=== PATIENT | male | born 1950 ===

== ENCOUNTER → 2022-09-22 14:57 | Outpatient (BNVA) | payer MEDICARE, OTHER, SELFPAY | PROVIDERS: PCP Family Medicine; Visit Provider Urology | DX: C61 Malignant neoplasm of prostate (principal); R39.15 Urgency of urination | CPT/HCPCS: 99202 ==

== ENCOUNTER → 2022-10-24 10:01 | Outpatient (BNVA) | payer MEDICARE, OTHER, SELFPAY | PROVIDERS: PCP Family Medicine; Visit Provider Urology | DX: C61 Malignant neoplasm of prostate (principal); R39.15 Urgency of urination | CPT/HCPCS: 52000; 99212 ==

== ENCOUNTER 2022-12-11 07:56 | Day surgery (SDC) | payer MEDICARE, OTHER, SELFPAY ==
--- NOTE | 2022-12-08 11:13 | HO.ANESPROP2 ---
Documented by User: Clarita Perez NP 12/08/22 11:13 HPI - Anesthesia Eval Consult details Narrative: 72yo M for Laser Ablation Prostate w/Green Light PMFSH Active Problems Active Problems: All Active Problems (Updated 09/22/22 @ 17:17 by Maurice Mcnair MD) Urinary urgency (Acute) Prostate cancer (Acute) Past Medical History Medical History Frequent urination Lyme disease Prostate cancer Social History Social History Patient Tobacco Use Status: Never used Tobacco Use of substances other than those prescribed or required for medical reasons: No Advance Directives: No Advance Directives Information Provided: Yes Meds Allergies Allergy/AdvReac Type Severity Reaction Status Date / Time No Known Allergies Allergy Verified 12/11/22 08:16 Home Medications Medication Instructions Recorded Confirmed Last Taken Type tamsulosin 0.4 mg capsule 0.8 mg PO DAILY 10/23/22 Unknown History Exam Exam Date and Time: December 08, 2022 1113 Assessment and Plan Assessment Anesthesia Assessment: Chart Reviewed Documented by User: Adriana Sargent MD 12/11/22 10:56 PMFSH Past Medical History Medical History Frequent urination Lyme disease Prostate cancer Family History Family history of problems with anesthesia: No Surgical History History of Problems with Anesthesia: No Social History Social History Patient Tobacco Use Status: Never used Tobacco Use of substances other than those prescribed or required for medical reasons: No Advance Directives: No Advance Directives Information Provided: Yes Meds Allergies Allergy/AdvReac Type Severity Reaction Status Date / Time No Known Allergies Allergy Verified 12/11/22 08:16 Home Medications Medication Instructions Recorded Confirmed Last Taken Type tamsulosin 0.4 mg capsule 0.8 mg PO DAILY 10/23/22 Unknown History Exam Airway Mallampati Class: II TM Dist: >3cm Neck ROM: Full Heart: rrr Lungs: cta Assessment and Plan Assessment Anesthesia Assessment: Anesthesia Plan Discussed Final Anesthetic Review Family History of Problems with Anesthesia: No History of Problems with Anesthesia: No NPO: Yes ASA Class: III Final Preanesthetic Review: No Changes in Pt Med Stat, Meds/Allgs Chart Reviewed, Consent Obtained/Reviewed and Anes Risks/Benef Reviewed Patient Risk: Intermediate Procedure Risk: Intermediate Anesthetic Plan Anesthetic Plan: GA Disposition: Standard PACU
[2022-12-11 08:19] VITALS: BMI 22.8
--- NOTE | 2022-12-11 11:36 | MHC.SHP ---
Pre-Procedural Eval Section A Date of Service: 12/11/22 The patient is an INPATIENT: No Changes since office visit: No Cold of Flu in the past 2 weeks, No New Medical Problems, No Changes in Medication and No Patient answered all questions The History & Physical has been completed within 30 days and I have reviewed it.: Yes Section B Chief Complaint: Benign prostatic hyperplasia with lower urinary tr Details of Present Illness: recurrent BPH with bladder neck obstruction Allergies: Allergies Allergy/AdvReac Type Severity Reaction Status Date / Time No Known Allergies Allergy Verified 12/11/22 08:16 Review of Systems Sugical H&P ROS: Negative: Constitution, Cardiovascular, Respiratory, Neurological, Psychiatric, Hem-Onc, Allergic/Immunologic, Gastrointestinal, Genitourinary, Musculoskeletal, Integumentary, Endocrine and Eyes/Ears/Nose/Throat Plan Diagnosis/Plan: Unchanged I have reviewed the history and physical and performed a pertinent physical examination on my patient. No changes have occurred unless specified. Time Spent With Patient Time: Total time managing care of this patient today ____ minutes.
--- NOTE | 2022-12-11 11:38 | W.PM.OPN ---
Operative Note Operative Note Date of Service: 12/11/22 Narrative: PreOperative Diagnosis: Neck contraction with BPH Post Operative Diagnosis: bladder neck contracture with BPH Procedure: GreenLight Laser bladder neck incision with prostate ablation Surgeon: Dr Maurice Mcnair Anesthesia: General Indications for procedure: underwent HiFU in [place] number of years ago for of prostate cancer treatment. Presents with persistent pyuria and weakness of stream. On cystoscopy has bladder neck contracture with median lobe of prostate. Recommend laser incision of the bladder neck with removal of medial aspect of the prostate. History of bladder outlet obstruction. Treated with alpha-alejandro and other medications. Still with symptoms Recommendation for prostate procedure with laser enucleation of prostate. Risks and benefits have been discussed. Focus was placed on development of retrograde ejaculation which is a normal part of this procedure. Procedure: After informed consent was verified the patient was brought to the operating room and placed in a supine position. Anesthesia was administered per protocol. Patient was placed in modified dorsal lithotomy position and prepped and draped in a sterile fashion. Safety pause time-out was confirmed. Antibiotics have been given. A Twenty-four [place] laser cystoscope was inserted per urethra. No abnormalities were found of the anterior and bulbar urethra. The prostate itself had evidence of prior HIFU treatment. The median lobe area down to the veru had been ablated. The bladder neck was contracted and there was a median lobe at that area. The bladder was examined and both ureteric orifices were seen in their normal positions away from the area of interest. The bladder itself had evidence of chronic inflammation with debris that would be consistent with pyuria. Using a GreenLight laser with settings of 80 w incisions were made at the 9 and 3 o'clock position. These were extended laterally in order to release the bladder neck contraction. In doing so the median lobe tissue at the trigone was released. The median lobe was then ablated and enucleated Creating an open channel. The lateral lobes were left intact to preserve continence. At the apex of the prostate there also looked to be beginnings of stricture forming secondary to devascularization. Great care was taken across this area as this is the location of the urinary sphincter. Both ureteric orifices were reviewed again in shown to be patent in away from any areas of energy damage. A 22 [place] 30 cc balloon Sparks catheter was placed over a stylet into the bladder. Clear efflux was obtained upopn irrigation with a Sonia piston syringe. 30 cc was placed in the balloon and gentle traction was placed. A snap was used to hold tension on the catheter to control bleeding during patient moved and transported. A drainage bag was placed. Once transportation is complete to the PACU the snap will be removed. The patient tolerated the procedure well, he was extubated in the operating and transferred in a stable condition to the recovery area. Total Power 26 kW Lasing time 5:30 Pathology: Prostate tissue Drains: Sparks catheter
[2022-12-11 11:45] VITALS: BP 142/73; PULSE 84; RESP 17; TEMP 36.1; O2SAT 96
[2022-12-11 11:50] VITALS: BP 125/75; PULSE 83; RESP 18; O2SAT 97
[2022-12-11 11:55] VITALS: BP 119/71; PULSE 79; RESP 18; O2SAT 97
[2022-12-11 12:00] VITALS: BP 126/72; PULSE 79; RESP 20; O2SAT 98
[2022-12-11 12:15] VITALS: BP 126/73; PULSE 74; RESP 20; TEMP 36.3; O2SAT 99
== END 2022-12-11 12:43 | disposition home or self-care (01) ==
PROVIDERS: PCP Family Medicine; Visit Provider Urology
PROC: (CPT 52648; principal; 2022-12-11 09:50)
DX: N40.1 Benign prostatic hyperplasia with lower urinary tract symptoms (principal); N13.8 Other obstructive and reflux uropathy; R39.12 Poor urinary stream; R82.81 Pyuria; Z85.46 Personal history of malignant neoplasm of prostate; Z88.1 Allergy status to other antibiotic agents; Z79.899 Other long term (current) drug therapy; Z86.19 Personal history of other infectious and parasitic diseases
CPT/HCPCS: 52648; J1100; J1956; J2405; J3010

== ENCOUNTER → 2022-12-14 09:24 | Outpatient (BNVA) | payer MEDICARE, OTHER, SELFPAY | PROVIDERS: PCP Family Medicine; Visit Provider Urology | DX: C61 Malignant neoplasm of prostate (principal) | CPT/HCPCS: 51700; 51798 ==

== ENCOUNTER → 2023-01-25 09:55 | Outpatient (BNVA) | payer OTHER, SELFPAY | PROVIDERS: PCP Family Medicine; Visit Provider Urology | DX: C61 Malignant neoplasm of prostate (principal); N32.0 Bladder-neck obstruction | CPT/HCPCS: 51798 ==

== ENCOUNTER 2023-07-27 10:26 | Outpatient (AMB) | payer MEDICARE, OTHER, SELFPAY ==
--- NOTE | 2023-07-27 10:39 | MHC.OFFVIS ---
Intake Intake Visit Reasons: 6m/PSA(Hall) Intake Note: Patient is Present for Follow Up Urology Medication: Finasteride, Tamsulosin Antibiotic Allergies: None Blood Thinners: None Pharmacy: [facility] Allergies No Known Allergies Allergy (Verified 07/27/23 10:43) Medication List - Last Reconciled 07/27/23 by Maurice Mcnair MD finasteride 5 mg PO DAILY 90 days tamsulosin 0.8 mg PO DAILY HPI HPI Comments History of Present Illness Details Adria is a pleasant male. He is a patient of . He is seen for the following urologic conditions - prostate cancer - urinary urgency and frequency with incontinence Prostate cancer and bladder outlet follow-up PSA well controlled 04/15 0.5 Has urinary urgency Is able to sleep through most of the night States 30 minutes during the day Can retry oxybutynin Prostate cancer Rising PSA Diagnosis 2006 Initial therapy HiFU in [place] PSA below 1 until recently PSA- 05/15 2.5, 04/15 0.5 Imaging - 09/14 volume 10 cc, PI-RADS 3 - 1 cm lesion, no evidence of KELLY Urinary urgency and frequency incontinence Progressive in past few years [facility] been [facility] Trial of multiple medications Cystoscopy - 10/16 median lobe prominent PFSH Medical History Frequent urination Prostate cancer Lyme disease Social History Patient Tobacco Use Status: Never used Tobacco Review of Systems Const Denies chills and Denies fever(s) Card Reports no additional complaints and Denies syncope Resp Denies cough GI Denies abdominal pain and Denies heartburn Reports as per HPI and Denies change in libido Neuro Denies syncope Psych Denies change in libido Endo Denies change in libido Physical Exam Const General: cooperative, healthy appearing, comfortable and no acute distress Orientation/consciousness: patient oriented x3 HEENT Face and sinus: Yes normal facial exam Mouth: moist mucous membranes Neck Neck: Yes normal visual inspection, Yes full ROM and Yes trachea midline Chest Chest palpation & inspection: normal inspection of the chest Resp Effort & Inspection: normal respiratory effort, able to speak in complete sentences and no respiratory distress GI Inspection: Yes normal to inspection Back/Spine/Pelvis Cervical Spine: normal cervical lordosis Thoracic/Lumbar Spine: thoracic and lumbar spine normal to inspection Skin General skin exam: no rashes or lesions noted Neuro General: patient oriented x3, gait normal, tone normal and moves all extremities Extrem General: Yes normal to inspection and Yes capillary refill normal Assessment & Plan Assessment & Plan (1) Prostate cancer: Comment: 2006 HiFu therapy [place] Code(s): C61 - Malignant neoplasm of prostate (2) Urinary urgency: Code(s): R39.15 - Urgency of urination (3) Bladder outlet obstruction: Code(s): N32.0 - Bladder-neck obstruction Plan Start anticholinergic Two month follow-up Orders: Orders Prostate Specific Antigen Today C61 - Malignant neoplasm of prostate, E11.69 - Type 2 diabetes mellitus with other specified complication, N52.1 - Erectile dysfunction due to diseases classified elsewhere Medications: New oxybutynin chloride ER 10 mg PO DAILY 30 tabs 1RF 30 days N32.81 - Overactive bladder, R39.15 - Urgency of urination Patient Instructions: Imaging studies, laboratory and physical exam results were discussed and reviewed in detail. No major barriers to patient understanding were identified. An opportunity to ask questions regarding the treatment plan was provided. All questions were answered. The patient expressed understanding and agreement with the above treatment plan. The patient is aware they should contact our office by phone for worsening of their current condition or the appearance of new urologic symptoms. Compliance is encouraged with any medications and followup testing that is ordered. It is a privilege to participate in the urologic care of your patient. If you have any questions or concerns regarding treatment for the above conditions, or other urologic issues, please do not hesitate to contact me. The office telephone contact is [phone]. This note is constructed using voice recognition software. While every effort has been made to ensure accuracy quality review trainer errors may have been included. Yours sincerely, Dr Maurice Mcnair MD, [facility] - Urology Providers of Expert, Compassionate Care for the Genitourinary System Coding Level of Care Code Est Pt Level 4 (73015) Diagnoses Prostate cancer C61 Urinary urgency R39.15 Bladder outlet obstruction N32.0
== END 2023-07-27 11:08 | disposition home or self-care (01) ==
PROVIDERS: Visit Provider Urology
DX: C61 Malignant neoplasm of prostate (principal); R39.15 Urgency of urination; N32.0 Bladder-neck obstruction
CPT/HCPCS: 99214

== ENCOUNTER → 2023-07-27 10:26 | Outpatient (BNVA) | payer OTHER, SELFPAY | PROVIDERS: Visit Provider Urology ==

== ENCOUNTER 2023-10-09 10:30 | Outpatient (AMB) | payer MEDICARE, OTHER, SELFPAY ==
--- NOTE | 2023-10-09 10:31 | A.OFFVIS_ITS ---
Intake Intake Visit Reasons: 2M PSA/Med Review(set) Conf Intake Note: Patient is Present for Telephone Follow Up PSA Urology Med: Finasteride, Oxybutynin, Tamsulosin Antibiotic Allergy: None Blood Thinner: None Patient states he is not taking any medications Allergies No Known Allergies Allergy (Verified 10/09/23 10:34) Medication List - Last Reconciled 10/09/23 by Maurice Mcnair MD finasteride 5 mg PO DAILY 90 days oxybutynin chloride ER 10 mg PO DAILY 30 days tamsulosin 0.8 mg PO DAILY HPI HPI Comments History of Present Illness Details Adria is a pleasant male. He is a patient of . He is seen for the following urologic conditions - prostate cancer - urinary urgency and frequency with [facility] Telemedicine Evaluation 15 min Consultation [employer] attempted Prostate cancer and bladder outlet follow-up PSA well controlled 04/15 0.5 Did not lemon picker medication Represcribed oxybutynin 10 mg Will switch to mail order successful Two month follow-up Prostate cancer 2006 Rising PSA Diagnosis 2006 Initial therapy HiFU in [place] PSA below 1 until recently PSA- 05/15 2.5, 04/15 0.5 Imaging - 09/14 volume 10 cc, PI-RADS 3 - 1 cm lesion, no evidence of KELLY Urinary urgency and frequency incontinence Progressive in past few years Has been investigated [facility] Trial of multiple medications Cystoscopy - 10/16 median lobe prominent PFSH Medical History Frequent urination Prostate cancer Lyme disease Social History Patient Tobacco Use Status: Never used Tobacco Review of Systems Const All systems reviewed & are unremarkable except as noted in HPI and below Reports no additional complaints Resp Reports no additional complaints GI Reports no additional complaints Reports as per HPI Musc Reports no additional complaints Physical Exam Telemedicine evaluation Appropriate responses Regular breathing rate and rhythm HEENT Head: Yes normal to inspection Ears: hearing grossly normal bilaterally Eyes General: appearance normal, both eyes and all related structures Neck Neck: Yes normal visual inspection Chest Chest palpation & inspection: normal inspection of the chest Resp Effort & Inspection: normal respiratory effort and able to speak in complete sentences Assessment & Plan Assessment & Plan (1) Prostate cancer: Comment: 2006 HiFu therapy [place] Code(s): C61 - Malignant neoplasm of prostate (2) Urinary urgency: Code(s): R39.15 - Urgency of urination Plan Two month follow-up tele Medications: Refilled oxybutynin chloride ER 10 mg PO DAILY 30 tabs 1RF 30 days N32.81 - Overactive bladder, R39.15 - Urgency of urination Patient Instructions: Imaging studies, laboratory and physical exam results were discussed and reviewed in detail. No major barriers to patient understanding were identified. An opportunity to ask questions regarding the treatment plan was provided. All questions were answered. The patient expressed understanding and agreement with the above treatment plan. The patient is aware they should contact our office by phone for worsening of their current condition or the appearance of new urologic symptoms. Compliance is encouraged with any medications and followup testing that is ordered. It is a privilege to participate in the urologic care of your patient. If you have any questions or concerns regarding treatment for the above conditions, or other urologic issues, please do not hesitate to contact me. The office telephone contact is [phone]. This note is constructed using voice recognition software. While every effort has been made to ensure accuracy magnetic healer errors may have been included. Yours sincerely, Dr Maurice Mcnair MD, [facility] - Urology Providers of Expert, Compassionate Care for the Genitourinary System Telehealth Telehealth Location of provider rendering services: practice address Location of patient: address on file Patient Identification confirmed using: Name, : Yes Telehealth method: voice only Patient verbally consented to treatment: Yes Patient verbally consented to billing insurance company: Yes Patient informed of any privacy concerns related to visit: Yes Coding Level of Care Code Tele Est Pt Level 3 (54449) Diagnoses Prostate cancer C61 Urinary urgency R39.15
== END 2023-10-09 10:45 | disposition home or self-care (01) ==
LOC: HO.HUSH 10:30
PROVIDERS: PCP Family Medicine; Visit Provider Urology
DX: C61 Malignant neoplasm of prostate (principal); R39.15 Urgency of urination
CPT/HCPCS: 99213

== ENCOUNTER → 2023-10-09 10:30 | Outpatient (BNVA) | payer OTHER, SELFPAY | PROVIDERS: PCP Family Medicine; Visit Provider Urology ==

== ENCOUNTER 2023-12-11 10:57 | Outpatient (AMB) | payer MEDICARE, OTHER, SELFPAY ==
--- NOTE | 2023-12-11 10:58 | A.OFFVIS_ITS ---
Intake Intake Visit Reasons: 2m follow up Intake Note: Patient is Present for Telephone Follow Up Urology Med: Finasteride, Oxybutynin, Tamsulosin Antibiotic Allergy:None Blood Thinner:None Allergies No Known Allergies Allergy (Verified 10/09/23 10:34) Medication List - Last Reconciled 12/11/23 by Maurice Mcnair MD finasteride 5 mg PO DAILY 90 days oxybutynin chloride ER 10 mg PO DAILY 30 days tamsulosin 0.8 mg PO DAILY HPI HPI Comments History of Present Illness Details Adria is a pleasant male. He is a patient of . He is seen for the following urologic conditions - prostate cancer [facility] Evaluation 15 min Consultation [employer] Video attempted Prostate cancer and bladder outlet follow-up PSA well controlled 04/15 0.5 Will retry oxybutynin 10 mg Prostate cancer 2006 Initial presentation with rising PSA Diagnosis 2006 Initial therapy HiFU in [place] PSA below 1 until recently PSA- 05/15 2.5, 04/15 0.5, 09/15 0.6 Imaging - 09/14 volume 10 cc, PI-RADS 3 - 1 cm lesion, no evidence of KELLY Finasteride alternate - months Urinary urgency and frequency incontinence Progressive in past few years Has been investigated at [facility] Trial of multiple medications Cystoscopy - 10/16 median lobe prominent COUNTS INCLUDE [facility] BEDS AT [facility] Medical History Frequent urination Prostate cancer Lyme disease Social History Patient Tobacco Use Status: Never used Tobacco Review of Systems Const All systems reviewed & are unremarkable except as noted in HPI and below Reports no additional complaints Resp Reports no additional complaints GI Reports no additional complaints Reports as per HPI Musc Reports no additional complaints Physical Exam Telemedicine evaluation Appropriate responses Regular breathing rate and rhythm HEENT Head: Yes normal to inspection Ears: hearing grossly normal bilaterally Eyes General: appearance normal, both eyes and all related structures Neck Neck: Yes normal visual inspection Chest Chest palpation & inspection: normal inspection of the chest Resp Effort & Inspection: normal respiratory effort and able to speak in complete sentences Assessment & Plan Assessment & Plan (1) Prostate cancer: Comment: 2006 HiFu therapy [place] Code(s): C61 - Malignant neoplasm of prostate (2) Bladder outlet obstruction: Code(s): N32.0 - Bladder-neck obstruction Plan Six-month follow-up PSA Orders: Orders Prostate Specific Antigen 6 Months C61 - Malignant neoplasm of prostate Medications: Refilled finasteride Take medication daily alternate calendar months 5 mg PO DAILY 90 days 90 tabs 0RF C61 - Malignant neoplasm of prostate finasteride Take medication daily alternate calendar months 5 mg PO DAILY 90 tabs 0RF 90 days C61 - Malignant neoplasm of prostate Patient Instructions: Imaging studies, laboratory and physical exam results were discussed and reviewed in detail. No major barriers to patient understanding were identified. An opportunity to ask questions regarding the treatment plan was provided. All questions were answered. The patient expressed understanding and agreement with the above treatment plan. The patient is aware they should contact our office by phone for worsening of their current condition or the appearance of new urologic symptoms. Compliance is encouraged with any medications and followup testing that is ordered. It is a privilege to participate in the urologic care of your patient. If you have any questions or concerns regarding treatment for the above conditions, or other urologic issues, please do not hesitate to contact me. The office telephone contact is [phone]. This note is constructed using voice recognition software. While every effort has been made to ensure accuracy cycle specialist errors may have been included. Yours sincerely, Dr Maurice Mcnair MD, [facility] - Urology Providers of Expert, Compassionate Care for the Genitourinary System Telehealth Telehealth Location of provider rendering services: practice address Location of patient: address on file Patient Identification confirmed using: Name, : Yes Telehealth method: video Patient verbally consented to treatment: Yes Patient verbally consented to billing insurance company: Yes Patient informed of any privacy concerns related to visit: Yes Coding Level of Care Code Tele Est Pt Level 3 (47147) Diagnoses Prostate cancer C61 Bladder outlet obstruction N32.0
== END 2023-12-11 11:38 | disposition home or self-care (01) ==
LOC: HO.HUSH 10:57
PROVIDERS: PCP Family Medicine; Visit Provider Urology
DX: C61 Malignant neoplasm of prostate (principal); N32.0 Bladder-neck obstruction
CPT/HCPCS: 99213

== ENCOUNTER → 2023-12-11 10:57 | Outpatient (BNVA) | payer MEDICARE, OTHER, SELFPAY | PROVIDERS: PCP Family Medicine; Visit Provider Urology ==

== ENCOUNTER 2024-07-29 13:51 | Outpatient (AMB) | payer MEDICARE, OTHER, SELFPAY ==
--- NOTE | 2024-07-29 13:53 | MHC.OFFVIS ---
Intake Visit Reasons: 6M PSA(set) Intake Note: Patient is present for PSA Follow up Urology Med: Oxybutynin, Finasteride, Tamsulosin Antibiotic Allergy: None Blood Thinner: None PSA- 05/05/2024- 0.41 Adjunct Professor Of English Required: No Accompanied by: Self / Same As Patient Allergies No Known Allergies Allergy (Verified 07/29/24 13:58) HPI Comments Details: Adria is a pleasant male. He is a patient of . He is seen for the following urologic conditions - prostate cancer - urinary urgency and frequency with incontinence Six-month follow-up Urinary urge during the day Failed oxybutynin Trial Toviaz PSA well controlled Would continue with alternate month finasteride Prostate cancer 2006 Initial presentation with rising PSA Diagnosis 2006 Initial therapy HiFU in [place] PSA below 1 until recently PSA- 05/15 2.5, 04/15 0.5, 09/15 0.6, 05/17 0.4 Imaging - 09/14 volume 10 cc, PI-RADS 3 - 1 cm lesion, no evidence of KELLY Finasteride alternate - months Urinary urgency and frequency incontinence Progressive in past few years [facility] been [facility] Trial of multiple medications Cystoscopy - 10/16 median lobe prominent 12/14 GreenLight laser 2 separate scarring PFSH Medical History Frequent urination Prostate cancer Lyme disease Social History Patient Tobacco Use Status: Never used Tobacco Review of Systems Const Denies chills and Denies fever(s) Card Reports no additional complaints and Denies syncope Resp Denies cough GI Denies abdominal pain and Denies heartburn Reports as per HPI and Denies change in libido Neuro Denies syncope Psych Denies change in libido Endo Denies change in libido Physical Exam Const General: cooperative, healthy appearing, comfortable and no acute distress Orientation/consciousness: patient oriented x3 HEENT Face and sinus: Yes normal facial exam Mouth: moist mucous membranes Neck Neck: Yes normal visual inspection, Yes full ROM and Yes trachea midline Chest Chest palpation & inspection: normal inspection of the chest Resp Effort & Inspection: normal respiratory effort, able to speak in complete sentences and no respiratory distress GI Inspection: Yes normal to inspection Back/Spine/Pelvis Cervical Spine: normal cervical lordosis Thoracic/Lumbar Spine: thoracic and lumbar spine normal to inspection Skin General skin exam: no rashes or lesions noted Neuro General: patient oriented x3, gait normal, tone normal and moves all extremities Extrem General: Yes normal to inspection and Yes capillary refill normal Assessment & Plan Assessment & Plan (1) Prostate cancer: Comment: 2006 HiFu therapy [place] Code(s): C61 - Malignant neoplasm of prostate Category: Medical Plan Trial Toviaz Three-month follow-up Medications: New fesoterodine ER (Toviaz) 8 mg PO DAILY 30 days 30 tabs 1RF R39.15 - Urgency of urination Patient Instructions: Imaging studies, laboratory and physical exam results were discussed and reviewed in detail. No major barriers to patient understanding were identified. An opportunity to ask questions regarding the treatment plan was provided. All questions were answered. The patient expressed understanding and agreement with the above treatment plan. The patient is aware they should contact our office by phone for worsening of their current condition or the appearance of new urologic symptoms. Compliance is encouraged with any medications and followup testing that is ordered. It is a privilege to participate in the urologic care of your patient. If you have any questions or concerns regarding treatment for the above conditions, or other urologic issues, please do not hesitate to contact me. The office telephone contact is [phone]. This note is constructed using voice recognition software. While every effort has been made to ensure accuracy home supervisor errors may have been included. Yours sincerely, Dr Maurice Mcnair MD, [facility] - Urology Providers of Expert, Compassionate Care for the Genitourinary System Coding Level of Care Code Est Pt Level 4 (06958) Diagnoses Prostate cancer C61
== END 2024-07-29 14:24 | disposition home or self-care (01) ==
LOC: HO.HUSH 13:52
PROVIDERS: PCP Family Medicine; Visit Provider Urology
DX: C61 Malignant neoplasm of prostate (principal)
CPT/HCPCS: 99214

== ENCOUNTER → 2024-07-29 13:51 | Outpatient (BNVA) | payer MEDICARE, OTHER, SELFPAY | PROVIDERS: PCP Family Medicine; Visit Provider Urology | DX: C61 Malignant neoplasm of prostate (principal) | CPT/HCPCS: 99212 ==

== ENCOUNTER → 2024-10-30 08:46 | Outpatient (BNVA) | payer OTHER, SELFPAY | PROVIDERS: PCP Family Medicine; Visit Provider Urology ==